=== PATIENT | male | born 1945 | race Caucasian/White ===

== ENCOUNTER 2022-04-22 11:28 | Outpatient (CLI) | payer BC, MEDICARE, SELFPAY ==
[2022-04-22 11:37] VITALS: BP 134/77; PULSE 78; RESP 16; TEMP 35.8; O2SAT 99
[2022-04-22] MEDS: TETRACAINE 0.5% OPHTH 1 DROP EYE-BOTH ×3 (11:40→12:14)
[2022-04-22] MEDS: BRIMONIDINE TARTRATE 0.2% OPHTH 1 DROP EYE-BOTH ×2 (11:43→12:28)
--- NOTE | 2022-04-22 12:34 | P.OPTPRC_ITS ---
Procedure Note Date of procedure: 04/22/22 Will [facility] bill your pro fee for this procedure?: Yes Procedure Description: SURGEON: Tiesha Hoffman MD PREOPERATIVE DIAGNOSIS: Posterior capsular opacity, right and left eye POSTOPERATIVE DIAGNOSIS: Posterior capsular opacity, right and left eye PROCEDURE: YAG laser capsulotomy, both eyes ANESTHESIA: Topical. ESTIMATED BLOOD LOSS: None PATHOLOGY SPECIMEN: None COMPLICATIONS: None INDICATIONS: See consult note for details. The risks, benefits and alternatives of the procedure were explained to the patient, who elected to proceed and signed informed consent to do so. PROCEDURE: The patient was brought to the pre-holding area where the right and left eyes were identified as the operative eyes. I placed my initials above the eyes. The following was given in both eyes: The patient received 2 sets of 1 drop of 0.5% tetracaine and 1 drop of 1% tropicamide. They also received 1 drop of 0.2% brimonidine. They received 1 drop of 0.5% tetracaine immediately prior to bringing them back for the procedure. The patient was then brought to the procedure room where the right and left eyes were again identified as the operative eyes. A YAG Carlos capsulotomy lens was placed on the right eye. The laser was administered using a total number of 13 shots with an energy of 2.4 mJ per shot for a total energy of 31 mJ. The patient tolerated the procedure well. A YAG Carlos capsulotomy lens was placed on the left eye. The laser was administered using a total number of 10 shots with an energy of 2.4 mJ per shot for a total energy of 24 mJ. The patient tolerated the procedure well. DISPOSITION: The patient was taken back to the pre-holding area and given 1 drop of 0.2% brimonidine in both eyes. They were discharged to home in stable condition. The patient was instructed to call me or go to the emergency department with any sudden change, including dramatic loss of vision, severe pain in the eye or eyebrow region, nausea, or vomiting. The patient was instructed to use the 0.2% brimonidine 1 drop 2 times a day in both eyes for 1 week. The patient will follow up in the clinic in 1-2 weeks. Surgeon: Tiesha Hoffman MD
== END 2022-04-22 12:30 | disposition home or self-care (01) ==
LOC: EYE PRC 11:30
PROVIDERS: PCP Family Medicine; Visit Provider Ophthalmology
DX: H26.9 Unspecified cataract (principal)
CPT/HCPCS: 66821; A9270

== ENCOUNTER 2022-10-13 15:00 | Outpatient (RCR) | payer BC, SELFPAY | END 2023-02-10 23:59 | disposition home or self-care (01) | PROVIDERS: PCP Family Medicine; Visit Provider Family Medicine | DX: R26.81 Unsteadiness on feet (principal); R26.89 Other abnormalities of gait and mobility; Z91.81 History of falling; R53.1 Weakness; Z51.89 Encounter for other specified aftercare | CPT/HCPCS: 97110; 97112; 97162 ==

== ENCOUNTER 2025-02-14 00:41 | Emergency (ER) | payer BC, SELFPAY ==
--- OUTSIDE RECORDS SUMMARY | 2025-02-14 00:44 | XMS_ITS | Clinical Summary ---
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 0 011 Active cholecalciferol (VITAMIN D-3) 2,000 unit capsule Take 1 capsule by mouth once daily. 0 015 Active aspirin chewable 81 mg chewable tablet Take 1 tablet by mouth once daily with a meal. 90 tablet 3 019 Active Graduated Compression StockingsIndicati ons:Venous insufficiency 20-30 mm/Hg thigh high compression stockings - Venous insufficiency 8 Packet 021 Active warfarin (COUMADIN) 1 mg tabletIndications :Paroxysmal atrial fibrillation (HC),Anticoagulat ion monitoring, INR range 2-3 Not currently using this tablet strength 30 Tablet 3 024 Active transmitter for continuous blood glucose monitor (CGM)Indications: Controlled type 2 diabetes mellitus without complication, without long-term current use of insulin (HC) To be used to read blood sugars, follow founder and president directions. 1 Each 4 024 Active benzonatate (TESSALON) 100 mg capsuleIndication s:COPD, mild (HC) TAKE ONE CAPSULE BY MOUTH 3 TIMES DAILY NEEDED FOR COUGH 90 Capsule 3 024 Active torsemide 10 mg tabletIndications :Edema due to congestive heart failure (HC) TAKE ONE (10mg) BY MOUTH ONCE DAILY 90 Tablet 3 025 Active dilTIAZem CD 120 mg extended release 24 hr capsuleIndication s:Paroxysmal atrial fibrillation (HC) Take 1 Capsule (120 mg) by mouth once daily before a meal. 90 Capsule 3 025 Active atorvastatin 40 mg tabletIndications :Hyperlipidemia, unspecified hyperlipidemia type Take 1 Tablet (40 mg) by mouth once daily. In the morning 90 Tablet 3 025 Active potassium chloride 20 mEq extended-release tablet (part/cryst)Indic ations:Edema due to congestive heart failure (HC) Take 1 Tablet (20 mEq) by mouth once daily with a meal. 90 Tablet 2 025 Active FreeStyle David 2 Plus Sensor for continuous blood glucose monitor (CGM)Indications: Controlled type 2 diabetes mellitus without complication, without long-term current use of insulin (HC) To be used to read blood sugars, follow founder and president directions. 6 Each 3 025 Active FreeStyle David 2 ReaderIndications :Controlled type 2 diabetes mellitus without complication, without long-term current use of insulin (HC) TO BE USED TO READ BLOOD SUGARS PER STATION ENGINEER MAIN LINE'S DIRECTIONS 1 Each 025 Active dapagliflozin propanediol (FARXIGA) 5 mg tabletIndications :Controlled type 2 diabetes mellitus without complication, without long-term current use of insulin (HC) Take 1 Tablet (5 mg) by mouth once daily. 90 Tablet 3 025 Active warfarin (COUMADIN) 4 mg tabletIndications :Paroxysmal atrial fibrillation (HC),Anticoagulat ion monitoring, INR range 2-3 Take by mouth 4 mg (4 mg x 1) every day or as directed. 90 Tablet 025 Active warfarin (COUMADIN) 4 mg tabletIndications :Paroxysmal atrial fibrillation (HC),Anticoagulat ion monitoring, INR range 2-3 Take by mouth 4 mg (4 mg x 1) every day in the evening OR as directed 2024 Discontinued Active Problems Problem Noted Date Diagnosed Date Diabetic nephropathy associa kalyn with type 2 diabetes mellitus 08/03/2024 Claudication of both lower extremities 3 Stage 3 chronic kidney disea se, unspecified whether stage 3a or 3b CKD 08/20/2022 HTN (hypertension) 02/12/2022 Edema due to congestive heart failure 05/23/2019 Controlled type 2 diabetes johana montanez without complication, without long-term current use of insulin 08/31/2017 Mild renal insufficiency 08/31/2017 Atrial fibrillation with rapid ventricular respo nse 10/07/2016 Overview (10/20/2022): atrial fibrillation. He initially was treated with beta-jose and Rythmol but with that he developed atrial flutter prompting discontinuation. He presented in 2010 with chest discomfort. A coronary angiogram showed only mild nonobstructive coronary artery disease. Following the angiogram, he developed severe sinus bradycardia with sinus arrest and prolonged asystole requiring external pacing and intubation. Unfortunately he developed aspiration pneumonia with extended hospitalization. While in the hospital he developed monomorphic ventricular tachycardia with a cardiac MRI showing no significant abnormality. Subsequent stress testing showed right ventricular outflow tract PVCs. A dual chamber pacemaker was implanted in 2010. He was transiently on amiodarone, but he has had progressive atrial fibrillation and a rate control strategy was eventually adopted. Microscopic colitis 06/06/2015 Overview (06/06/2015): Colonoscopy 06/2015 microscopic colitis repeat in 10 years Hyperlipidemia 05/05/2015 Anticoagulation monitoring, INR range 2-3 2013 Retinal detachment 05/05/2011 History of sudden cardiac arrest successfully re suscitated 08/02/2010 Sustained monomorphic VT (ventricular tachycardi a) 07/25/2010 Overview (07/25/2010): -requiring DCC 07/04/2010 - started on amiodarone SAHARA AHI-38 06/30/2010 07/04/2010 ACP (advance care planning) 07/04/2010 Overview (07/04/2010): Patient has identified Health Care Agent(s): No Add Health Care Agents: No Patient has Advance Care Plan Documents (Health Care Directive, POLST): No, unable to discuss with pt as he is currently intubated and sedated. Patient has identified Specific Treatment Preferences: No Specific limits to treatment preferences NOT identified: ASSUME FULL TREATMENT. Per spouse pt preference for HCA's are as follows: Primary HCA, , Katie Choi [phone], c [phone] Secondary HCA, son Truong Choi [phone] Paroxysmal atrial fibrillation 07/02/2010 Overview (07/24/2010): -Coronary angiogram 2001 with some disease but not flow limiting and not clear symptomatic -07/2010: Amiodarone therapy with plan for consideration of ablation in future ASHD (arteriosclerotic heart disease) 09/04/2009 Dual Chamber Pacemaker 07/23/2010 Overview (07/24/2010): -placed for SND limiting medical therapy for PAF Resolved Problems Problem Noted Date Diagnosed Date Resolved Date COPD, mild 11/04/2012 08/03/2024 Hyperlipemia 09/08/2011 05/05/2015 Sleep apnea 05/05/2011 09/08/2011 Blood glucose elevated 08/19/201009/07 Chest pain likely due to Afib with RVR 08/02/2010 09/11/2010 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 07/25/2010 09/08/2011 Overview (07/25/2010): 07/03/2010 sinus arrest and severe bradycardia post coronary angiogram - vasovagal triggered PEA arrest 07/07/10 07/25/2010 08/04/19 25 Overview (07/25/2010): -due to cardiac tamponade - drained and pigtail placed with resolution/cardiac stability Anoxic encephalopathy syndrome 07/25/2010 09/08/2011 ARDS (adult respiratory distress syndrome) 07/16/2010 08/31/2017 Aspiration pneumonia 07/16/2010 012 SIRS due to infectious proce ss with organ dysfunction 07/16/2010 08/01/2010 Chest pain 07/03/2010 08/01/2010 Hyperlipidemia 07/02/2010 09/11/2010 Atrial fibrillation 08/27/2009 08/02/19 11 AVN (avascular necrosis of bone) 08/27/2009 07/02/2020 Prediabetes 07/13/2008 08/31/2017 Other and unspecified hyperlipidemia 08/24/2007 09/08/2011 CHEST PAIN 08/01/2010 See problem list document fo r additional problems 08/27/2009 S/P ANKLE SURGERY FOR BROKEN ANKLE 08/31/2017 Encounters Date Type Department Care Team Description 02/12/2025 Nurse Triage [facility] [address] [place] [address] Breann He MD Head Injury 02/08/2025 Refill [facility] [address] [place] [address] Breann He MD Refill Request (Warfarin) 01/12/2025 4:00 PM CDT Orders Only [facility] [address] [place] [address] Lab, [place] <No scans attached> 01/12/2025 Anticoagulation (warfarin) [facility] [address] [place] [address] Nurse, Ahg Anticoag Anticoagulation 01/12/2025 Travel 01/03/2025 Anticoagulation (warfarin) [facility] [address] [place] [address] Nurse, Ahg Anticoag Anticoagulation (Chart update ) 01/02/2025 Telephone [facility] [address] [place] [address] Breann He MD Anticoagulation (Unable to contact) 12/29/2024 2:45 PM CDT Orders Only [facility] [address] [facility] [place] [address] Lab, [place] <No scans attached> 12/29/2024 Anticoagulation (warfarin) [facility] [address] [place] [address] Nurse, Ahg Anticoag Anticoagulation 12/29/2024 Travel 12/25/2024 9:30 AM CDT Office Visit [facility] [address] [place] [address] McLeran, Soraida Yaima, PA Diabetes (BS has been dropping past couple weeks to 50s-60s, diet hasn't changed much) 12/25/2024 Travel 12/08/2024 2:00 PM CDT Orders Only [facility] [address] [place] [address] Lab, [place] <No scans attached> 12/08/2024 Anticoagulation (warfarin) [facility] [address] [place] [address] Nurse, stephie Anticoag Anticoagulation (lab) 12/08/2024 Travel 11/29/2024 Refill [facility] [address] [place] [address] Breann He MD Refill Request (Warfarin) 11/25/2024 Refill [facility] [address] [place] [address] Breann He MD Refill Request (Freestyle David 2 [place]) 11/20/2024 2:45 PM CDT Orders Only [facility] [address] [place] [address] Lab, [place] Lab 11/20/2024 Anticoagulation (warfarin) [facility] [address] [place] [address] Nurse, stephie Anticoag Anticoagulation 11/20/2024 Travel from Last 3 Months Immunizations Immunization Administration Dates Next Due Amb Influenza, Inact (High-d ose) (Flu Clinic Only) 02/05/2016 Amb Influenza, Inactivated A IIV4 (Age 65+ Years) Preserv Free 02/08/2020 COVID-19 vaccine (Moderna 100mcg/0.5mL) PF, MDV 08/21/2021,03/14/2021,07/19/2020,06/21 COVID-19 vaccine (Pfizer-Bio NTech 30mcg/0.3mL) 12YO+ BIVALENT PF, MDV 08/24/2022 Influenza A (H1N1), Inactivated 05/15/2009 Influenza, High-dose Inactivated 024,03/03/2019,01/31/2018,04/10,02/23/2014 Influenza, High-dose Quadriv alent Inactivated 02/20/2021 Influenza, IIV3 (Age 6-35 mos) 01/23/2010,2008 Influenza, IIV3 (Age >=3 years) 02/07/20 13,04/06/2012,02/03/2011,03/04,01/23/2010,05/11/2005 Influenza, Inactivated AIIV4 (Age 65+ Years) Preserv Free 01/26/2023,02/24/2022 Influenza, Inactivated IIV3 (Age 65+ Years) Preserv Free 02/01/2017 Influenza, Injectable, Mdck, Quadrivalent, W/preservative 02/10/2018 Pneumococcal Poly,23-Valent (Pneumovax) 05/10/2014 Pneumococcal conj 13-Valent (Prevnar 13) 07/07/2016 RSV, Recombinant ADJ Reconst ituted (Arexvy 120MCG/0.5mL) 03/01/2023 Tdap 09/22/2023,05/10/2014 Family History Medical History Relation Name Comments Heart Disease Father heart failure but no [place] - occured in his 80's Diabetes Maternal Grandfather Stroke Mother CVA was in her 70's Relation Name Status Comments Father Maternal Grandfather Mother Social History Tobacco Use Types Packs/Day Years Used Date Smoking Tobacco: Former Pipe Q uit: 05/03/1985 Passive Smoke Exposure: Never Smokeless Tobacco: Never Tobacco Cessation:Counseling Given: Not Answered Comments:remote pipe smoking during graduate school - about 25 yrs ago. Alcohol Use Standard Drinks/Week Comments Not Currently 0 (1 standard drink = 0.6 oz pur e alcohol) rare PHQ-2 Answer Date Recorded PHQ-2 TOTAL SCORE 0 08/03/2024 Social Connections Answer Date Recorded Do you often feel lonely or isolated from those around you? 0 08/02/2024 Financial Resource Strain Answer Date R ecorded Difficulty of Paying Living Expenses 3 08/02/2024 Difficulty of Paying Living Expenses Not on file 08/02/2024 Food Insecurity Answer Date Recorded Do you worry your food will run out before you are able to buy more? 1 08/02/2024 Transportation Needs Answer Date Record ed Does lack of transportation keep you from medica l appointments? 1 08/02/2024 Does lack of transportation keep you from work, meetings or getting things that you need? 1 08/02/2024 Housing Stability Answer Date Recorded What is your housing situation today? 1 08/02/2024 Utilities Answer Date Recorded Do you have trouble paying f or utilities (for example, heat, electricity, water, phone)? 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 Gender Identity Not on file Sexual Orientation Not on file Obstetrics History Last Filed Vital Signs Vital Sign Reading Time Taken Comments Blood Pressure 110/74 12/25/2024 9:32 AM CDT Pulse 55 12/25/2024 9:32 AM CDT Temperature 36.3 C (97.4 F) 05/08/2024 11:35 AM MOVEMENT EDUCATION SPECIALIST Respiratory Rate 16 10/20/2022 10:15 AM CDT Oxygen Saturation 94% 10/31/2024 11:36 AM CDT Inhaled Oxygen Concentration - - Weight 94.8 kg (209 lb) 12/25/2024 9:32 AM CDT Height 177.8 cm (5' 10) 10/31/2024 11:36 AM CDT Body Mass Index 29.99 10/31/2024 11:36 AM CDT Plan of Treatment Upcoming Encounters Date Type Department Care Team (Late st Contact Info) Description 02/28/2025 8:30 AM CDT Orders Only [facility] [address] [place] [address] Lab, [place] 05/15/2025 2:30 PM MOVEMENT EDUCATION SPECIALIST Cardiac Device Check [facility] [address] [place] [id number] Health Maintenance Due Date Last Done Comments Zoster (shingles) series for age 50+ (1 of 2) 1997 Influenza Vaccine (#1) 2025 , 01/26/2023, 02/24/2022, Additional history exists Depression screening for age 12+ 08/03/2025 08/03/2024, 08/03/2024, 08/21/2022, Additional history exists BMI (ht and wt on same day) for age 18+ 10/31/2025 10/31/2024, 10/11/2024, 08/03/2024, Additional history exists Tetanus booster 09/21/2033 09/22/2023, 05/10/2014 Pneumococcal series for age 50+ Completed 07/07/2016, 05/10/2014 Hepatitis C screening for age 18-79 Completed 12/22/2019 RSV vaccine for adults or Completed 03/01/2023 COVID-19 vaccine series Completed 10/24/19, 01/27/2024, 10/25/2023, Additional history exists Hepatitis B series for 19+ Aged Out N o longer eligible based on patient's age to complete this topic Medical Devices Implanted Type Area Mortar Man Device Identifier Shelf Expiration Date Model / Serial / Lot Standard Pacemaker- [id number] Implanted:2010 by Kenton Daly MD (Quantity not on file) Standard Pacemaker [employer] [id number] / [id number] / Tire 7.0/2.5mm [id number] Groove-Concave Asym [id number] Labt - [id number] Implanted:Qty: 1 on 2011 at [facility] Right: Eye [employer] 08/30/2016 [id number]# / / [id number] Band Circling .[id number] X [id number] [employer] - [id number] Implanted:Qty: 1 on 2011 at [facility] Right: Eye [employer] 06/30/2017 [id number]# / / [id number] Sleeve Silcn 1.00i.D.X2.1mm Od [id number] [id number] [employer] - [id number] Implanted:Qty: 1 on 2011 at [facility] Right: Eye [employer] 08/30/2017 [id number]# / / [id number] Procedures Procedure Name Priority Date/Time Associated Diagnosis Comments INR,POCT Routine 01/12/2025 4:12 PM CDT Paroxysmal atrial fibrillation (HC) Anticoagulation monitoring, INR range 2-3 PROTIME-INR Routine 12/29/2024 3:05 PM CDT Paroxysmal atrial fibrillation (HC) Anticoagulation monitoring, INR range 2-3 HEMOGLOBIN A1C Routine 12/25/2024 10:27 AM CDT Controlled type 2 diabetes mellitus without complication, without long-term current use of insulin (HC) INR,POCT Routine 12/08/2024 1:57 PM CDT Paroxysmal atrial fibrillation (HC) Anticoagulation monitoring, INR range 2-3 INR,POCT Routine 11/20/2024 2:41 PM CDT Paroxysmal atrial fibrillation (HC) Anticoagulation monitoring, INR range 2-3 ANTI HCV Routine 12/22/2019 8:48 AM CDT Encounter for hepatitis C screening test for low risk patient from Last 3 Months or Most Recently Relevant to Health Maintenance Results * (ABNORMAL) INR - POCT [35857.2] - Standing Order (01/12/2025 4:12 PM CDT) Only the most recent of3 resultswithin the time period is included. INR 2.3(H) ratio 01/12/2025 4:22 PM CDT [facility] Comment: INRs >2.9 may be falsely elevated in patients receiving either unfractionated Heparin or Low Molecular Weight Heparin. Follow up testing in a hospital laboratory may be helpful if clinically indicated. INR results of > or = 5.0 should be verified using the standard venipuncture procedure. Reference Range 0.9-1.1 Moderate-intensity Warfarin Therapy 2.0-3.0 Higher-intensity Warfarin Therapy 3.0-4.0 PROTHROMBIN TIMEP 27.6(H) 10.5 - 13.1 sec 01/12/2025 4:22 PM CDT [facility] Comment: Point of care fingerstick Prothrombin Time/INR results may vary from venous Prothrombin Time/INR methodologies. Any results exhibiting inconsistency with the patient's clinical status should be repeated using a venous Prothrombin Time/INR method. Blood BLOOD SPECIMEN / Unknown [facility] / Unknown 01/12/2025 4:12 PM CDT 01/12/2025 4:12 PM CDT us Breann He MD LABORATORY Final Result Performing Organization Address City/State/[facility] Co de Phone Number [facility] [address] [place] [address], [place] [phone] [facility] [address] [place] [address], * (ABNORMAL) PROTIME-INR [[id number]] - Standing Order (12/29/2024 3:05 PM CDT) INR 3.2(H) <1.3 12/29/2024 4:[address] [facility] PROTIME 37.2(H) 10.6 - 12.4 sec 12/29/2024 4:[address] [facility] Blood BLOOD SPECIMEN / Unknown [facility] / Unknown 12/29/2024 3:05 PM CDT 12/29/2024 3:05 PM CDT [facility] - 12/29/2024 4:49 PM CDT Therapeutic Range 2.0-3.0 for most anticoagulated patients 2.5-3.5 or 4.0 for high risk patients The INR is only used for patients on stable oral anticoagulant therapy. It makes no significant contribution to the diagnosis or treatment of patients whose Protime is prolonged for other reasons. INR results are increased when heparin levels exceed 1.0 U/mL, which corresponds to an aPTT >125 seconds if the patient is on UFH. Breann He MD HEMATOLOGY Final Result Performing Organization Address [facility] Co de Phone Number [facility] [address] [place] [address] * (ABNORMAL) HEMOGLOBIN A1C (12/25/2024 10:27 AM CDT) HEMOGLOBIN A1C 6.5(H) <5.7 % 12/26/2024 4:52 AM CDT [facility] Comment: For someone without known diabetes, a hemoglobin A1c value of 6.5% or greater indicates that they may have diabetes and this should be confirmed with a follow-up test. For someone with known diabetes, a value <7% indicates that their diabetes is well controlled and a value greater than or equal to 7% indicates suboptimal control. A1c targets should be individualized based on duration of diabetes, age, comorbid conditions, and other considerations. Currently, no consensus exists regarding use of hemoglobin A1c for diagnosis of diabetes for children. Blood BLOOD SPECIMEN / Unknown [facility] / Unknown 12/25/2024 10:27 AM CDT 12/25/2024 10:27 AM CDT us Soraida FLOWER CHEMISTRY Final R esult [facility] [address] [id number], * ANTI HCV (12/22/2019 8:48 AM CDT) Pathologist [facility] HEPATITIS C ANTIBODY Non-React elizabeth Non-React elizabeth 12/22/2019 5:02 PM CDT [facility] Comment:Antibodies to HCV no t detected; does not exclude the possibility of exposure to HCV. Blood BLOOD SPECIMEN / Unknown Venipuncture / Unknown 12/22/2019 8:48 AM CDT 12/22/2019 8:48 AM CDT Breann He MD SEND OUTS Final Result Performing Organization Address City/[facility]/ZIP Co de Phone Number [facility] [address] [place] [address], [place] from Last 3 Months or Most Recently Relevant to Health Maintenance Additional Health Concerns Infection Onset Date Last Indicated [facility] Comment:ORDER Contact Precautions if admitted. 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 07/18/2010 07/18/[address] [place] [address] MEDICARE PART A HB ONLY Advance Directives * Full Code (Latest Code Status on File) Date Activated Date Inactivated Comments 2011 1:15 PM 2011 9:09 PM * Full Code Date Activated Date Inactivated Comments 08/02/2010 8:42 PM 08/03/2010 4:09 PM * Full Code Date Activated Date Inactivated Comments 07/25/2010 1:55 PM 07/29/2010 1:09 PM * Full Code Date Activated Date Inactivated Comments 07/02/2010 10:41 PM 07/25/2010 1:55 PM Care Teams Poultry Debeaker Relationship Specialty Start Date End Date Breann He MD [address] [place] [address] PCP - General Family Practice 08/23/05
--- NOTE | 2025-02-14 00:47 | ED.LOWEXIN ---
HPI - Extremity Injury (Lower) General Time Seen by Provider: 01:07 Date Seen: 02/14/25 Chief Complaint: Extremity Pain/Injury, Lower Stated Complaint: fall- leg injury Time Seen by Provider: 02/14/25 00:43 Source: patient and family History of Present Illness HPI Narrative: 79-year-old male currently anticoagulated for atrial fibrillation, presents today with right leg pain. Patient had a fall 6 days ago landed on his right side. He had x-rays at Urgent Care that were negative. Tonight was moving and felt a pull in his leg, increased pain and swelling since then. Took some Tylenol prior to coming the emergency department. No numbness or tingling in the foot. No weakness. Related Data Home Medications ?Medication ?Instructions ?Recorded ?Confirmed aspirin 81 mg tablet 81 mg PO QDAY 02/12/25 02/14/25 atorvastatin 40 mg tablet 40 mg PO DAILY 02/12/25 02/14/25 benzonatate 100 mg capsule 100 mg PO 3XD 02/12/25 02/14/25 dapagliflozin propanediol 10 mg 10 mg PO DAILY 02/12/25 02/14/25 tablet (Farxiga) diltiazem HCl 120 mg 120 mg PO DAILY 02/12/25 02/14/25 capsule,extended release 24 hr losartan 50 mg tablet 50 mg PO DAILY 02/12/25 02/14/25 potassium chloride 20 mEq 20 meq PO DAILY 02/12/25 02/14/25 tablet,extended release(part/cryst) torsemide 10 mg tablet 10 mg PO DAILY 02/12/25 02/14/25 warfarin 4 mg tablet 4 mg PO DIRECTED 02/12/25 02/14/25 Allergies Allergy/AdvReac Type Severity Reaction Status Date / Time No Known Drug Allergies Allergy Verified 02/14/25 00:50 Exam Narrative: Exam Narrative: General: well nourished , NAD Head: Atraumatic and normocephalic ENT: External ears and external nose are normal Eyes: Conjunctiva clear, pupils are equal reactive, external ocular motions are intact Neck: Full spontaneous range of motion of the neck Lungs: No respiratory distress Musculoskeletal: Bruising of the extensor surface of the right forearm. Right anterior lateral thigh tender and swollen, there is some swelling around the knee but no joint effusion and no pain with active or passive range of motion, no evidence for septic arthritis or crystal arthropathy, no evidence for hemarthrosis. Distal sensation and pulses are intact. There is some pain with knee flexion in the area of the right quadriceps but pain is not out of proportion. Compartments are soft. Neurologic: No gross focal neurologic deficits Skin: No rashes Psych: Mood and affect are appropriate Const: Vital Signs, click to edit/add: Vital Signs - 24 hr 02/14/25 00:48 Temperature 97.9 F Pulse Rate [Right Pulse Oximeter] 73 Respiratory Rate 18 Blood Pressure [Ri ght Upper Arm] 132/74 Pulse Oximetry 99 Oxygen Delivery Me thod Room Air Course Course ED Course: Reviewed urgent care visit from February 12, at that time was seen for injury sustained from a fall that occurred 4 dyes prior. He was complaining of pain in the right along the right hip. 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 Notes that he felt a pull or pain in the leg earlier and had increased pain and swelling since then. On exam vital a stable, no hypotension and patient does not describe lightheadedness, chest pain, shortness of breath to suggest acute anemia. He has swelling and some yellowish discoloration of the right thigh, marked tenderness of the anterior lateral right thigh the compartment is soft, no pain with passive movement to suggest compartment syndrome. Bedside ultrasound shows diffuse intramuscular edema but no fluid collection. Symptoms are most consistent with intramuscular contusion, with patient being anticoagulated feeling a pole and increased swelling this evening, likely had little additional bleeding into this tonight. We discussed compression, ice I will have him hold his Coumadin for couple of days. We did discuss risks and benefits of this including risk of stroke but at this time treatment of his intramuscular hematoma is more important to help with pain and also prevent compartment syndrome. Vital Signs Vital signs: Initial Vital Signs Temperature 97.9 F 02/14/25 00:48 Temperature Source Temporal Artery Scan 02/14/25 00:48 Pulse Rate 73 02/14/25 00:48 Respiratory Rate 18 02/14/25 00:48 Blood Pressure 132/74 02/14/25 00:48 Blood Pressure Mean 93 02/14/25 00:48 Blood Pressure Position Sitting 02/14/25 00:48 Pulse Oximetry 99 02/14/25 00:48 Oxygen Delivery Method Room Air 02/14/25 00:48 Vital Signs Temperature 97.9 F 02/14/25 00:48 Pulse Rate 73 02/14/25 00:48 Respiratory Rate 18 02/14/25 00:48 Blood Pressure 132/74 02/14/25 00:48 Pulse Oximetry 99 02/14/25 00:48 Oxygen Delivery Method Room Air 02/14/25 00:48 Temperature 97.9 F 02/14/25 00:48 Pulse Rate 73 02/14/25 00:48 Respiratory Rate 18 02/14/25 00:48 Blood Pressure 132/74 02/14/25 00:48 Pulse Oximetry 99 02/14/25 00:48 Oxygen Delivery Method Room Air 02/14/25 00:48 Discharge Plan Discharge Clinical Impression: Traumatic hematoma of right thigh Patient Disposition: Home, Self-Care Condition: Stable Instructions: Contusion in Adults (ED) Additional Instructions: Stop Coumadin for 3 days, restart on Wednesday Apply Taiwo wrap for comfort. Ice or heat for comfort. Activity Level: Activity as Tolerated Discharge Diet: Regular Prescriptions: No Action losartan 50 mg tablet 50 mg PO DAILY atorvastatin 40 mg tablet 40 mg PO DAILY torsemide 10 mg tablet 10 mg PO DAILY warfarin 4 mg tablet 4 mg PO DIRECTED potassium chloride 20 mEq tablet,ER particles/crystals 20 meq PO DAILY benzonatate 100 mg capsule 100 mg PO 3XD diltiazem HCl 120 mg capsule,extended release 24hr 120 mg PO DAILY dapagliflozin propanediol [Farxiga] 10 mg tablet 10 mg PO DAILY aspirin 81 mg tablet 81 mg PO QDAY Follow Up/Referrals: Breann He MD [Primary Care Provider, Family Practice] Stand Alone Forms: MyHealth Info Instructions
[2025-02-14 00:48] VITALS: BP 132/74; PULSE 73; RESP 18; TEMP 36.6; O2SAT 99; BMI 28.7
== END 2025-02-14 01:22 | disposition home or self-care (01) ==
LOC: ED 01:21
PROVIDERS: Emergency Provider Family Medicine; PCP Family Medicine
DX: S70.11XA Contusion of right thigh, initial encounter (principal); W19.XXXA Unspecified fall, initial encounter; Z79.01 Long term (current) use of anticoagulants
CPT/HCPCS: 99283